=== PATIENT | male | born 1945 | race Caucasian/White ===

== ENCOUNTER 2016-09-15 10:57 | Emergency (ER) | payer BC ==
[2016-09-15 11:14] VITALS: BP 124/56; PULSE 68; TEMP 97.9; BMI 31.4
--- NOTE | 2016-09-15 11:31 | PDOC ---
Suture Removal/Wound Check HPI - History of Present Illness Chief Complaint: Suture/Staple Removal(Here) Stated Complaint: eben Time Seen by Provider: 09/15/16 11:05 History Source: Yes: Patient Exam Limitations: Yes: No Limitations Treated at: [facility] ED - Previous ED Treatment Type of procedure performed on last visit: Yes: Laceration Repair Tetanus Immunization: Yes: Up to Date Past History - Travel Traveled outside of the country in the last 30 days: No Close contact w/someone who was outside of country & ill: No - Past Medical History Allergies/Adverse Reactions: Allergies No Known Allergies Allergy (Verified 09/15/16 11:03) Home Medications: Ambulatory Orders Acetaminophen W/ Codeine #3 [Tylenol # 3] 2 combo PO Q6H #20 tablet 07/02/15 Acetaminophen W/ Codeine Liq [Tylenol .W/Codeine Oral Solution -] 5 ml PO Q6H PRN #120 ml 07/02/15 Aspirin [ASA -] 81 mg PO DAILY 07/02/15 Cholecalciferol (Vitamin D3) [Vitamin D] 2,000 unit PO 07/02/15 Vit B12/Pyridoxine/Thiamine [Pv Neuro Evelyn Tablet] 1 07/02/15 General: Yes: no pertinent history - Social History Smoking Status: Never smoked Suture Removal/Wound Check PE - Physical Exam Laceration/Wound Check Symptoms: reports: None Current Severity Level: None Maximum Severity Level: None Pain Localization: None *Review of Systems - Review of Systems Able to Perform ROS?: Yes Constitutional: Yes: Symptoms Reported, Malaise. No: See HPI *DC/Admit/Observation/Transfer Diagnosis at time of Disposition: Encounter for removal of eben - Discharge Dispostion Disposition: HOME Condition at time of disposition: Stable Admit: No
== END 2016-09-15 11:45 | disposition home or self-care (01) ==
LOC: JERFT 10:57
DX: Z48.02 Encounter for removal of sutures (principal)
CPT/HCPCS: 99281-25

== ENCOUNTER 2016-12-07 05:18 | Day surgery (SDC) | payer BC ==
[2016-12-06 12:43] VITALS: BMI 31.6
[~2016-12-07 05:18] MED LIST: BUPIVACAINE HCL/PF 0.25% (2.5MG/ML) 10 ML VIAL IJ ONE; LIDOCAINE HCL 1% PRESERVATIVE FREE - 30ML VIAL IJ ONE; methylPREDNISolone ACET (DEPO) 80 MG/1 ML VIAL IJ ONE
[2016-12-07 06:46] VITALS: TEMP 98.1
[2016-12-07] MEDS ORDERED: methylPREDNISolone ACET (DEPO) 80 MG/1 ML VIAL ONE ×2 (07:25→07:57)
[2016-12-07] MEDS ORDERED: BUPIVACAINE HCL/PF 0.25% (2.5MG/ML) 10 ML VIAL ONE (07:25)
[2016-12-07] MEDS ORDERED: PROPOFOL 20 ML ONE ×2 (07:40)
[2016-12-07] MEDS ORDERED: LIDOCAINE HCL/PF 2% SDV 5ML VIAL ONE (07:41)
[2016-12-07] MEDS ORDERED: LIDOCAINE HCL 1% PRESERVATIVE FREE - 30ML VIAL IJ ONE (08:02)
[2016-12-07] MEDS ORDERED: BUPIVACAINE HCL/PF 0.25% (2.5MG/ML) 10 ML VIAL IJ ONE (08:02)
[2016-12-07] MEDS ORDERED: methylPREDNISolone ACET (DEPO) 80 MG/1 ML VIAL IJ ONE (08:02)
[2016-12-07 09:18] VITALS: BP 106/60; PULSE 52
--- NOTE | 2016-12-07 15:49 | OP ---
DATE OF OPERATION: 12/07/2016 PREOPERATIVE DIAGNOSES: Lumbar spinal stenosis. Lower back pain. Right greater than left lower extremity radiculopathy. POSTOPERATIVE DIAGNOSES: Lumbar spinal stenosis. Lower back pain. Right greater than left lower extremity radiculopathy. ATTENDING SURGEON: Tyree Ovalles MD PROCEDURES: 1. Right L3-L4 epidural steroid injection. 2. Intraoperative fluoroscopy. ANESTHESIA: Local with IV sedation. ANESTHESIOLOGIST: Amy Adler MD INDICATIONS: The patient is a 71-year-old male with back pain and lumbar radiculopathy. Because of his intractable symptoms and failure of conservative treatment, he is here for the first lumbar epidural steroid injection. The risks of the procedure include, but are not limited to, bleeding, infection, spinal headache, and neurological injury. The patient understands the indication for the procedure, procedure in detail, risks and benefits, and alternatives for treatment of his lumbar condition, and wishes to proceed. No guarantees given for a favorable outcome. PROCEDURE IN DETAIL: After the patient was taken to the operating room, he was placed in the prone position with a pillow under his hips. The lumbar region was cleaned with alcohol and prepared with Betadine. OR timeout procedure was followed. A 22-gauge spinal needle was inserted under AP and fluoroscopic guidance toward the epidural space from right-sided approach to L3-4. A [id number] exposure was encountered and the spinal canal was accessed near the center and slightly to the right. There was no CSF or blood backflow. Depo-Medrol of 80 mg and 1 mL of 0.25% Marcaine were injected. The patient tolerated the procedure well, was returned back to the supine position, moving bilateral lower extremities well. He did not complain of a headache. TYREE OVALLES M.D. [id number]
== END 2016-12-07 09:18 | disposition home or self-care (01) ==
LOC: JASU-SURG 05:18
PROVIDERS: ATTEND Neurological Surgery
PROC: 3E0S3BZ Introduction of Anesthetic Agent into Epidural Space, Percutaneous Approach (ICD-10-PCS; 2016-12-07)
PROC: 3E0S33Z Introduction of Anti-inflammatory into Epidural Space, Percutaneous Approach (ICD-10-PCS; principal; 2016-12-07 07:30)
DX: M48.06 Spinal stenosis, lumbar region (principal); M54.16 Radiculopathy, lumbar region
CPT/HCPCS: 76000-TC

== ENCOUNTER 2018-01-03 07:34 | Day surgery (SDC) | payer BC ==
[2018-01-02 13:11] VITALS: BMI 28.1
[2018-01-03 08:08] VITALS: TEMP 98
[2018-01-03] MEDS ORDERED: BUPIVACAINE HCL/PF 0.25% (2.5MG/ML) 10 ML VIAL ONE (08:59)
[2018-01-03] MEDS ORDERED: methylPREDNISolone ACET (DEPO) 80 MG/1 ML VIAL ONE (08:59)
[2018-01-03] MEDS ORDERED: PROPOFOL 20 ML ONE ×2 (09:19)
[2018-01-03] MEDS ORDERED: methylPREDNISolone ACET (DEPO) 80 MG/1 ML VIAL IM ONE (09:25)
[2018-01-03] MEDS ORDERED: LIDOCAINE HCL 1%, 10 MG/ML (50 mL VIAL) IJ ONE (09:25)
[2018-01-03] MEDS ORDERED: BUPIVACAINE HCL/PF 0.25% (2.5MG/ML) 10 ML VIAL IJ ONE (09:25)
[2018-01-03] MEDS ORDERED: oxyCODONE HCL 5 MG TABLET PO PRN (09:35)
[2018-01-03] MEDS ORDERED: PROMETHAZINE HCL 25 MG/1 ML VIAL IVPUSH PRN (09:35)
[2018-01-03] MEDS ORDERED: ONDANSETRON 4 MG/2 ML VIAL IVPUSH PRN (09:35)
[2018-01-03] MEDS ORDERED: LACTATED RINGERS SOLUTION 1,000 ML IV SCH (09:45)
--- NOTE | 2018-01-03 10:28 | OP ---
DATE OF OPERATION: 01/03/2018 PREOPERATIVE DIAGNOSIS: Lumbar disk disease with lower back pain, lumbar radiculopathy. POSTOPERATIVE DIAGNOSIS: Lumbar disk disease with lower back pain, lumbar radiculopathy. ATTENDING SURGEON: Tyree Ovalles MD PROCEDURE: 1. Right L4-5 epidural steroid injection 2. Intraoperative fluoroscopy. ANESTHESIA: Local with IV sedation. ANESTHESIOLOGIST: Liza Elam MD INDICATION: The patient is a 72-year-old male with back pain, lumbar radiculopathy. Because of intractable symptoms and failure of conservative treatment, he is here for his first epidural steroid injection. He was found on MRI to have new disk herniation at L3-4 as well as the prior disk disease at L4-5. Risks of the procedure including but not limited to bleeding, infection, spinal headache, neurologic injury. The patient understands the indication for the procedure, the procedure in detail, risks, and benefits, and alternatives treatments for his lumbar condition and wished to proceed. No guarantee was given for a favorable outcome. PROCEDURE IN DETAIL: After patient was taken to the operating room, he was placed in prone position with a pillow under his hips. Lumbar area was cleaned with alcohol and prepped with Betadine. Skin wheal was raised with 5 mL of 1% Xylocaine. A 22-gauge spinal needle was inserted under AP and lateral fluoroscopic guidance from right-sided approach to L4-5. Loss of resistance technique was utilized. There was no CSF or blood backflow. Next, 80 mg of Depo-Medrol and 1 mL 0.25% Marcaine was injected. The needle was withdrawn and sterile bandage was applied. The patient tolerated the procedure well, was turned back to supine position, moving bilateral lower extremities well. He did not complain of a holding area. TYREE OVALLES M.D. [id number]
[2018-01-03 11:05] VITALS: BP 120/75; PULSE 54
== END 2018-01-03 10:35 | disposition home or self-care (01) ==
LOC: JASU-SURG 07:34
PROVIDERS: ATTEND Neurological Surgery
PROC: 3E0R33Z Introduction of Anti-inflammatory into Spinal Canal, Percutaneous Approach (ICD-10-PCS; 2018-01-03)
PROC: B01BYZZ Fluoroscopy of Spinal Cord using Other Contrast (ICD-10-PCS; 2018-01-03)
PROC: 3E0R3BZ Introduction of Anesthetic Agent into Spinal Canal, Percutaneous Approach (ICD-10-PCS; principal; 2018-01-03 09:00)
DX: M51.16 Intervertebral disc disorders with radiculopathy, lumbar region (principal); M48.061 Spinal stenosis, lumbar region without neurogenic claudication; Z98.890 Other specified postprocedural states
CPT/HCPCS: 76000-TC-FY

== ENCOUNTER 2018-02-01 07:00 | Day surgery (SDC) | payer BC, OTHER ==
[2018-01-31 10:02] VITALS: BMI 28.1
[2018-02-01 07:24] VITALS: TEMP 97.9
[2018-02-01] MEDS ORDERED: methylPREDNISolone ACET (DEPO) 80 MG/1 ML VIAL ONE (07:47)
[2018-02-01] MEDS ORDERED: BUPIVACAINE HCL/PF 0.25% (2.5MG/ML) 10 ML VIAL ONE (07:48)
[2018-02-01] MEDS ORDERED: LIDOCAINE HCL 1%, 10 MG/ML (20ML VIAL) ONE (07:49)
[2018-02-01] MEDS ORDERED: ONDANSETRON 4 MG/2 ML VIAL IVPUSH PRN (07:52)
[2018-02-01] MEDS ORDERED: PROPOFOL 20 ML ONE (08:14)
[2018-02-01] MEDS ORDERED: MIDAZOLAM HCL 2 MG/2 ML SINGLE DOSE VIAL ONE (08:14)
[2018-02-01] MEDS ORDERED: LIDOCAINE HCL/PF 2% SDV 5ML VIAL ONE (08:14)
[2018-02-01] MEDS ORDERED: KETOROLAC TROMETHAMINE 30 MG/1 ML VIAL ONE (08:52)
[2018-02-01] MEDS ORDERED: methylPREDNISolone ACET (DEPO) 80 MG/1 ML VIAL IJ ONE (09:01)
[2018-02-01] MEDS ORDERED: LIDOCAINE HCL 1% PRESERVATIVE FREE - 30ML VIAL IJ ONE (09:01)
[2018-02-01] MEDS ORDERED: BUPIVACAINE HCL/PF 0.25% (2.5MG/ML) 10 ML VIAL IJ ONE (09:01)
--- NOTE | 2018-02-01 10:20 | OP ---
DATE OF OPERATION: 02/01/2018 PREOPERATIVE DIAGNOSES: Lumbar spinal stenosis with intractable lower back pain and right greater than left L4-L5 radiculopathy. POSTOPERATIVE DIAGNOSES: Lumbar spinal stenosis with intractable lower back pain and right greater than left L4-L5 radiculopathy. ATTENDING SURGEON: Tyree Vora MD PROCEDURES: 1. Right L4-L5 epidural steroid injection. 2. Intraoperative fluoroscopy. ANESTHESIA: Local with IV sedation. ANESTHESIOLOGIST: Harjinder Wright MD INDICATION: The patient is a 72-year-old male with intractable back pain and right greater than the left sciatica. Because of intractable symptoms and failure of conservative treatment, he is here for the second epidural steroid injection. The first injection gave him a couple weeks of moderate relief. However, his pain has subsequently exacerbated. The risks of the procedure include but are not limited to bleeding, infection, spinal headache, and neurologic injury. The patient understands the indications for the procedure, procedure in detail, risks and benefits, and alternative treatments of his lumbar condition, and wishes to proceed. No guarantees were given for a favorable outcome. PROCEDURE IN DETAIL: After the patient was taken to the operating room, he was placed in a prone position with a pillow under his hips. He requested IV sedation, prior to being turned because of the excruciating pain. He has a fairly stiff shoulder and therefore his right arm was tucked on the side. Left arm was rotated forward and placed on the arm board. The posterior lumbar region was cleaned with alcohol and prepped with Betadine. A skin wheal was raised with 5 mL of 1% Xylocaine. A 22-gauge spinal needle was inserted under AP and lateral fluoroscopic guidance, after the skin was cleaned and prepped with alcohol and Betadine. The 22-gauge spinal needle was inserted under AP and lateral fluoroscopic guidance from a right-sided approach at L4-L5. Loss of resistance technique was utilized and there was no CSF or blood backflow. Depo-Medrol of 80 mg and 1 mL of 0.25% Marcaine were injected. The needle was withdrawn and a sterile bandage was applied. The patient tolerated the procedure well and was returned back to supine position, moving bilateral lower extremities well. He did not complain of headache. Jose [id number] MTDD
[2018-02-01 11:09] VITALS: BP 117/66; PULSE 52
== END 2018-02-01 11:10 | disposition home or self-care (01) ==
LOC: JASU-SURG 07:00
PROVIDERS: ATTEND Neurological Surgery
PROC: 3E0R3BZ Introduction of Anesthetic Agent into Spinal Canal, Percutaneous Approach (ICD-10-PCS; 2018-02-01)
PROC: B01BZZZ Fluoroscopy of Spinal Cord (ICD-10-PCS; 2018-02-01)
PROC: 3E0R33Z Introduction of Anti-inflammatory into Spinal Canal, Percutaneous Approach (ICD-10-PCS; principal; 2018-02-01 08:30)
DX: M48.061 Spinal stenosis, lumbar region without neurogenic claudication (principal); M54.16 Radiculopathy, lumbar region; M54.5 Low back pain
CPT/HCPCS: 76000-TC-FY

== ENCOUNTER 2018-02-05 07:26 | Emergency (ER) | payer BC, OTHER ==
[2018-02-05 07:34] VITALS: BMI 28.7
[2018-02-05] MEDS ORDERED: KETOROLAC TROMETHAMINE 60 MG/2 ML VIAL IM ONE (07:53)
[2018-02-05] MEDS ORDERED: KETOROLAC TROMETHAMINE 60 MG/2 ML VIAL ONE (07:56)
--- NOTE | 2018-02-05 08:04 | PDOC ---
History of Present Illness - General Chief Complaint: Back Pain Stated Complaint: LOWER BACK PAIN Time Seen by Provider: 02/05/18 07:43 History Source: Patient Exam Limitations: No Limitations - History of Present Illness Initial Comments: 02/05/18 07:58 Patient is a 72M with history of chronic back pain, HTN, HLD here today complaining of back pain over the past two months, worsening over the past 5 days. Patient has had two epidural steroid injections in the past month and an MRI on 12/21/17 that showed L L3 nerve root impingement and possible L4 nerve impingement, right anterior epidural density/hematoma at L3/L4 level, herniation at L4/L5 and L5/S1. Patient reports that he hasn't taken any medication for the past 5 days. He was previously prescribed oxycodone. Patient is coming in today because he can't bear the pain anymore. No fevers, chills, history of cancer, saddle anesthesia, or focal neuro deficits. Neurosurgeon: Tyree Vora PMD: Dr Karan Yoder 02/05/18 08:04 Past History - Past Medical History Allergies/Adverse Reactions: Allergies Allergy/AdvReac Type Severity Reaction Status Date / Time No Known Allergies Allergy Verified 02/05/18 07:30 Home Medications: Ambulatory Orders Atorvastatin Ca [Lipitor] 20 mg PO DAILY 12/06/16 Gabapentin [Neurontin] 300 mg PO BID 12/06/16 Losartan Potassium 25 mg PO HS 12/06/16 Metoprolol Succinate [Toprol XL -] 200 mg PO DAILY 12/06/16 Aspirin [ASA -] 325 mg PO DAILY 01/02/18 Oxycodone HCl 5 mg PO PRN PRN 01/02/18 Oxycodone HCl/Acetaminophen [Percocet 5-325 mg Tablet] 1 tab PO Q6H #12 tablet MDD 4 tabs 02/05/18 Pregabalin [Lyrica -] 50 mg PO TID #15 capsule MDD 3 02/05/18 Anemia: No Asthma: No Cancer: No Cardiac Disorders: No CVA: No COPD: No CHF: No Dementia: No Diabetes: No GI Disorders: No Disorders: No HTN: Yes Hypercholesterolemia: Yes Liver Disease: No Seizures: No Thyroid Disease: No - Surgical History Abdominal Surgery: No Appendectomy: No Cardiac Surgery: No (cardiac cath-no further treatment) Cholecystectomy: No Lung Surgery: No Neurologic Surgery: No Orthopedic Surgery: Yes (MICRODISECTOMY C5-6 2005) - Immunization History Immunization Up to Date: Yes - Suicide/Smoking/Psychosocial Hx Smoking History: Never smoked Have you smoked in the past 12 months: No Hx Alcohol Use: No Drug/Substance Use Hx: No Substance Use Type: None Hx Substance Use Treatment: No Review of Systems - Review of Systems Comments:: 02/05/18 08:02 GENERAL/CONSTITUTIONAL: No fever or chills. No weakness. HEAD, EYES, EARS, NOSE AND THROAT: No change in vision. No sore throat. CARDIOVASCULAR: No chest pain or shortness of breath RESPIRATORY: No cough, wheezing, or hemoptysis. GASTROINTESTINAL: No nausea, vomiting, diarrhea or constipation. GENITOURINARY: No dysuria, frequency, or change in urination. MUSCULOSKELETAL: Positive for back and leg pain. SKIN: No rash NEUROLOGIC: No headache, vertigo, loss of consciousness, or change in strength/ sensation. HEMATOLOGIC/LYMPHATIC: No anemia, easy bleeding, or history of blood clots. ALLERGIC/IMMUNOLOGIC: No hives or skin allergy. *Physical Exam - Vital Signs Last Vital Signs Temp Pulse Resp BP Pulse Ox 98.0 F 78 18 113/73 97 02/05/18 07:30 02/05/18 07:30 02/05/18 07:30 02/05/18 07:30 02/05/18 07:30 - Physical Exam Comments: 02/05/18 08:04 GENERAL: Awake, alert, and fully oriented, in moderate distress, ambulatory, can 't get comfortable BACK: Tender midline in lumbar spine, straight leg test negative, no signs of trauma/masses. HEAD: No signs of trauma, normocephalic, atraumatic EYES: PERRLA, EOMI, sclera anicteric, conjunctiva clear NECK: Normal ROM, supple, no lymphadenopathy, JVD, or masses LUNGS: No distress, speaks full sentences, clear to auscultation bilaterally HEART: Regular rate and rhythm, normal S1 and S2, no murmurs, rubs or gallops, peripheral pulses normal and equal bilaterally. ABDOMEN: Soft, nontender, normoactive bowel sounds. No guarding, no rebound. No masses EXTREMITIES: Normal inspection, Normal range of motion, no edema. No clubbing or cyanosis. NEUROLOGICAL: Cranial nerves II through XII grossly intact. Normal speech, normal gait, no focal sensorimotor deficits SKIN: Warm, Dry, normal turgor, no rashes or lesions noted. ED Treatment Course - LABORATORY CBC & Chemistry Diagram: 02/05/18 09:47 02/05/18 09:47 Medical Decision Making - Medical Decision Making 02/05/18 08:06 Patient is 72M with history of chronic back pain, HTN, HLD here today with back pain. Vital signs normal and stable. No red flags on exam. MRI recently done. Recently had epidural steroid injection. Will treat pain with percocet and toradol. Will call patient's neurosurgeon and pcp. 02/05/18 09:14 Dr Vora contacted, requesting basic labs and PSA done. PSA lab is sendout. Dr Vora evaluated patient, added on lyrica and x-rays. 02/05/18 10:39 Laboratory Tests 02/05/18 02/05/18 09:47 09:47 WBC 12.4 H Hgb 15.7 Plt Count 185 BUN 23 H D Creatinine 1.2 D Creat Clearance w eGFR 59.86 CBC shows small leukocytosis. CMP reassuring. PSA will not result today. Pending x-rays. Patient continues to be ambulatory. 02/05/18 10:56 X-rays show arthritis, will discharge home with pain medications. *DC/Admit/Observation/Transfer Diagnosis at time of Disposition: Back pain - Discharge Dispostion Disposition: HOME Condition at time of disposition: Good Decision to Admit order: No - Prescriptions Prescriptions: Oxycodone HCl/Acetaminophen [Percocet 5-325 mg Tablet] 1 tab PO Q6H #12 tablet MDD 4 tabs Pregabalin [Lyrica -] 50 mg PO TID #15 capsule MDD 3 - Referrals Referrals: Justin Yoder MD [Primary Care Provider] - - Patient Instructions Printed Discharge Instructions: DI for Low Back Pain Additional Instructions: Please return if you have any new, worsening or concerning symptoms. Please call to make an appointment with Dr Vora tomorrow. Please follow up with your primary care physician as well. - Post Discharge Activity
[2018-02-05] MEDS ORDERED: diazePAM 5 MG TABLET PO ONE (08:29)
--- NOTE | 2018-02-05 08:33 | PDOC ---
Attending Attestation - Resident Resident Name: JoaokathyTyree - ED Attending Attestation I have performed the following: I have examined & evaluated the patient, The case was reviewed & discussed with the resident, I agree w/resident's findings & plan, Exceptions are as noted - HPI HPI: 02/05/18 08:28 "The patient is a 72 year old male with a significant PMH of HTN, hyperlipidemia , and chronic back pain who presents to the emergency department with acute on chronic back pain over the past 5 days. The patient states he has a recent history of lumbar nerve impingements and herniations seen on MRI. The patient describes his back pain today as localized in the lower region with radiation down the legs bilaterally. The patient denies weakness or numbness. He denies difficulty ambulating. He denies incontinence or saddle anesthesia. He denies fevers or chills. Pt is seen by Dr. Vora for this. Had recent epidural steroid injection that he reports did not help. Pt has been taking gabapentin and oxycodone at home with no relief. Allergies: NKA PCP: Dr. Justin Yoder Neurosurg: Dr. Vora " - Physicial Exam PE: 02/05/18 08:31 "GENERAL: Awake, alert, and fully oriented, in no acute distress. HEAD: No signs of trauma EYES: PERRLA, EOMI, sclera anicteric, conjunctiva clear ENT: Auricles normal inspection, hearing grossly normal, nares patent, oropharynx clear without exudates. Moist mucosa NECK: Nontender, no stepoffs, Normal ROM, supple, no lymphadenopathy, JVD, or masses LUNGS: Breath sounds equal, clear to auscultation bilaterally. No wheezes, and no crackles HEART: Regular rate and rhythm, normal S1 and S2, no murmurs, rubs or gallops ABDOMEN: Soft, nontender, normoactive bowel sounds. No guarding, no rebound. No masses EXTREMITIES: Normal range of motion, no edema. No clubbing or cyanosis. No cords , erythema, or tenderness NEUROLOGICAL: Cranial nerves II through XII intact. 5/5 strength and sensation in all extremities, Normal speech, normal gait, normal cerebellar function SKIN: Warm, Dry, normal turgor, no rashes or lesions noted. " - Medical Decision Making 02/05/18 08:31 72 M with lower back pain 2/2 herniated discs. No clinical signs of cord compression or cauda equina. Pt ambulatory in ED with no assistsance. - Pain control with percocet, valium, toradol - Consult Dr. Vora 02/05/18 10:[address] Vora, who recommended L spine X rays. X rays obtained, revealing scoliosis, otherwise unremarkable. Pt reassessed - now with improved pain s/p meds. Ambulatory in ED with stable gait. Pt is well appearing, with normal vitals. Clinically stable for DC at this time. I discussed the physical exam findings, ancillary test results and final diagnoses with the patient. I answered all of the patient's questions. The patient was satisfied with the care received and felt comfortable with the discharge plan and treatment plan. The patient agrees to follow up with the primary care physician within 24-72 hours.
[2018-02-05] MEDS ORDERED: diazePAM 5 MG TABLET ONE (08:43)
[2018-02-05 10:01] LABS: HEMATOCRIT 47.4 % (35.4-49); HEMOGLOBIN 15.7 GM/dL (11.7-16.9); MCH 31.7 pg (25.7-33.7); MCHC 33.1 g/dl (32.0-35.9); MEAN CELL VOLUME 95.8 fl (80-96); MEAN PLT VOLUME 7.8 fl (7.5-11.1); PLATELET COUNT 185 K/MM3 (134-434); RBC 4.95 M/mm3 (4.00-5.60); RDW 14.5 % (11.9-15.9); WHITE BLOOD COUNT 12.4 K/mm3 (4.0-10.0)
[2018-02-05] MEDS ORDERED: PREGABALIN 50 MG CAPSULE PO ONE (10:03)
--- NOTE | 2018-02-05 10:03 | PN ---
Progress Note (short form) - Note Progress Note: NEUROSURGERY CONSULT DICTATED Pt examined Chart reviewed MRI reviewed () C/o severe LBP and sciatica Pain to B buttocks, R > L thomas-lateral thigh, rodriguez/calf, medial ankle Difficulty lying on back No B/B incontinence Only responded minimally to 2 EPSI PE: AF, VSS, at bedside in ED HEENT- NC/AT; Neck- supple; Cor - RR; Lungs- CTA; Abd- benign; Ext- no sign of DVT CN- Intact; Motor- 4+/5 pain limited B LE; Sensation- intact LT/vibration; DTR- hyporeflexia B; Back- B sciatic notch tenderness, + SLR on R at 30 degrees LS MRI- multilevel DDD; B mild foramenal disc bulge with lateral recess narrowing; broad based and central disc protrusion with B lateral recess and foramenal stenosis, R > L L5 root impingement in lateral recess (small disc fragment and facet synovial cyst) and L > R L4 root impingement in foramen L4-5 spondylolisthesis/instability- candidate for L4-5 laminectomies, partial L3 laminectomy and lateral recess decompression, L4-5 interbody fusion If adequate pain control could be achieved can be discharged for outpatient management otherwise could be admitted for inpatient management Add Lyrica 50 mg TID Lumbar flexion extension x-rays to r/o instability D/w pt, , and ED
[2018-02-05 10:27] LABS: ALBUMIN 3.3 g/dl (3.4-5.0); ALK PHOS 78 U/L (45-117); ANION GAP 6 (8-16); BILIRUBIN,TOTAL 0.6 mg/dL (0.2-1.0); BLOOD UREA NITROGEN 23 mg/dL (7-18); CALCIUM 8.5 mg/dL (8.5-10.1); CHLORIDE 108 mmol/L (98-107); CO2 25 mmol/L (21-32); CREATININE 1.2 mg/dL (0.7-1.3); GLUCOSE,RANDOM 85 mg/dL (74-106); POTASSIUM 4.4 mmol/L (3.5-5.1); SGOT/AST 19 U/L (15-37); SGPT/ALT 29 U/L (12-78); SODIUM 139 mmol/L (136-145); TOT PROT 6.7 g/dl (6.4-8.2)
[2018-02-05 11:07] VITALS: BP 107/77; PULSE 69; TEMP 97.7
--- NOTE | 2018-02-06 10:00 | CONS ---
DATE OF CONSULTATION: 02/05/2018 REQUESTING PHYSICIAN: Dr Montoya. GLASS HANDLER: Tyree Ovalles MD, Neurosurgery. CHIEF COMPLAINT: Lower back pain, bilateral sciatica. HISTORY OF PRESENT ILLNESS: The patient is a 72-year-old right-handed male with history of hypertension, hypercholesterolemia as well as chronic lower back pain who complains of increasing lower back pain over the last 2-3 months. The pain has been especially severe for the last 5 days. The pain goes from the lower back to the bilateral buttocks, posterior anterolateral thigh, right rodriguez and calf, to the right medial ankle. The pain also goes down to the left buttock and posterior thigh, down to the calf on the left side but it is not as severe. The pain is rated as 10 on a 1-10 scale. The pain is worse when lying down flat on his back as well as when he is trying to get up. He has no severe weakness, even though he has difficulty ambulating. He denies any bowel or bladder incontinence. There is no fever or chills nor any signs of history of primary systemic malignancy. MRI was done back in December demonstrating worsening L4-5 disk disease. The patient had previously undergone conservative treatment including physical therapy, anti-inflammatory medication, and a second epidural steroid injection was given last week. He has not benefited much from the injections. PAST MEDICAL HISTORY: Significant for hypertension, hypercholesterolemia. MEDICATIONS: Include Lipitor, Neurontin, losartan, metoprolol, aspirin 325 mg, and oxycodone p.r.n. ALLERGIES: There are no known drug allergies. FAMILY HISTORY: Noncontributory. SOCIAL HISTORY: He does not smoke and only drinks alcohol socially. He lives at home. He is retired. REVIEW OF SYSTEMS: Otherwise negative for other major constitutional, head and neck, cardiovascular, pulmonary, gastrointestinal, genitourinary, endocrinological, neurological, and psychological problems except for the above. PHYSICAL EXAMINATION: General: He is awake and alert. He is uncomfortable. He is sitting on the side of the stretcher. Vital Signs: Temperature is 98, blood pressure is 113/73, his pulse rate is 78 , and O2 saturation is 97% on room air. HEENT: Examination shows him to be normocephalic, atraumatic, anicteric. Neck: Supple with no lymphadenopathy, no carotid bruit. Coronary: Examination demonstrates a regular rhythm. Lungs: Clear bilaterally. Abdomen: Benign but obese. Extremities: Examination shows no signs of DVT. Distal pulses are 1-2+ and symmetric. Neurologic: He is awake, alert, and oriented x4. Cranial nerve examination is intact II-XII. Motor examination shows 4+/5 strength of bilateral lower extremities, limited by pain. Sensory examination demonstrates intact sensation to light touch and vibratory sensation. Deep tendon reflexes are hyporeflexive throughout. There is no pathologic long tract sign. Musculoskeletal: Examination of his lower back shows bilateral sciatic notch tenderness. He has a positive straight leg raise on the right at about 30 degrees. LABORATORY EXAMINATION: Pending. MRI of the lumbar spine from December 27, 2017 demonstrated multilevel degenerative disk disease from L3-4 to L5-S1. He has mild bilateral L3 foraminal disk bulge. There is mild foraminal narrowing. There is worsening broad-based disk protrusion both centrally and bilaterally at L4-5 extending through the left L4-5 neuroforamen. There is resultant thecal sac impingement. There is also a possible small disk extrusion on the right with right L5 nerve root impingement. There is left greater than right L4-5 neuroforaminal stenosis. There is moderate central stenosis. A small synovial cyst could be present on the right just below in the subarticular region. There is mild L5-S1 foraminal narrowing but there is no significant canal compromise or any nerve root impingement or thecal sac impingement. IMPRESSION: 1. Worsening L4-5 disk protrusion with lower back pain and bilateral lumbar radiculopathy, right greater than left in a predominant L4 and L5 distribution. 2. L4-5 lumbar stenosis greater than L3-4 and L5-S1. 3. Hypertension. 4. Obesity. 5. Hypercholesterolemia. RECOMMENDATIONS: The patient presents with chronic lower back pain which has worsened significantly over the last couple of months. He has bilateral sciatica, right greater than left. Even though he has no severe weakness, he has difficulty with ambulation. He also has difficulty lying down flat. Baseline blood tests should be obtained to rule out elevated LFTs including alkaline phosphatase and a PSA has been requested. If his pain persists, surgical intervention may be helpful in terms of lumbar decompression and interbody fusion at the L4-5 level. Unfortunately, he also has concurrent degenerative disease at L3-4 and L5-S1 which would make such a procedure potentially more problematic in the future. He does have mild spondylolisthesis at the L4-5 level. In the presence of a synovial cyst, there is likely some segmental instability there. I discussed the above with the patient and his at the bedside in the emergency room. Obviously, he needs to meet admission criteria to be admitted. They will also discuss his condition with his primary care physician. The above was discussed with the emergency room attending as well. TYREE OVALLES M.D. [id number] MTDD
== END 2018-02-05 11:07 | disposition home or self-care (01) ==
LOC: JER 07:26
PROC: 3E0233Z Introduction of Anti-inflammatory into Muscle, Percutaneous Approach (ICD-10-PCS; principal; 2018-02-05)
DX: M54.5 Low back pain (principal); G89.29 Other chronic pain; I10 Essential (primary) hypertension; E78.5 Hyperlipidemia, unspecified; E78.00 Pure hypercholesterolemia, unspecified; M54.41 Lumbago with sciatica, right side; M54.42 Lumbago with sciatica, left side
CPT/HCPCS: 36415; 72100-TC-FY; 80053; 84153; 85027; 96372; 99282-25

== ENCOUNTER 2018-02-26 05:13 | Inpatient (IN) | payer BC, OTHER ==
[2018-02-23 10:09] VITALS: BMI 28.1
[2018-02-26] MEDS: GABAPENTIN 300 MG CAPSULE (FP) PO SCH (00:51)
[~2018-02-26 05:13] MED LIST changes: +BACITRACIN 15 GM TUBE TOPICAL OINTMENT TP ONE; -BUPIVACAINE HCL/PF 0.25% (2.5MG/ML) 10 ML VIAL IJ ONE; -LIDOCAINE HCL 1% PRESERVATIVE FREE - 30ML VIAL IJ ONE; -methylPREDNISolone ACET (DEPO) 80 MG/1 ML VIAL IJ ONE
[2018-02-26] MEDS: ATORVASTATIN CA 20 MG TABLET (FP) PO SCH (10:00)
[2018-02-26] MEDS: CEFAZOLIN 1 GM in DEXTROSE 5%-WATER - 50 ML IVPB SCH (10:00)
[2018-02-26] MEDS: diazePAM 5 MG TABLET PO SCH (10:00)
[2018-02-26] MEDS ORDERED: fentaNYL CITRATE 250 MCG/5 ML VIAL ONE (13:27)
[2018-02-26] MEDS ORDERED: ROCURONIUM BROMIDE 50 MG/5 ML VIAL ONE ×2 (13:28→14:52)
[2018-02-26] MEDS ORDERED: ONDANSETRON 4 MG/2 ML VIAL ONE (13:28)
[2018-02-26] MEDS ORDERED: PROPOFOL 20 ML ONE ×3 (13:28)
[2018-02-26] MEDS ORDERED: DEXAMETHASONE SOD PHOSPHATE 4 MG/1 ML VIAL ONE (13:28)
[2018-02-26] MEDS ORDERED: MIDAZOLAM HCL 2 MG/2 ML SINGLE DOSE VIAL ONE (13:28)
[2018-02-26] MEDS ORDERED: BUPIVACAINE HCL/PF 0.5% (5MG/ML) 10 ML VIAL ONE (13:53)
[2018-02-26] MEDS ORDERED: BACITRACIN 15 GM TUBE TOPICAL OINTMENT ONE (13:53)
[2018-02-26] MEDS ORDERED: THROMBIN (BOVINE) 5,000 UNIT VIAL TP ONE ×2 (13:53→14:48)
--- NOTE | 2018-02-26 13:53 | HP ---
History & Physical Update - History History: No Change - Physical Physical: No Change - Assessment Assessment: No Change - Plan Plan: No Change (no changes since visit on 02/20/[address] Yoder)
[2018-02-26] MEDS ORDERED: ceFAZolin SODIUM 1 GM VIAL IVPB ONE (14:33)
[2018-02-26] MEDS ORDERED: ceFAZolin SODIUM 1 GM VIAL ONE (14:46)
[2018-02-26] MEDS ORDERED: BACITRACIN 50,000 UNITS VIAL NR ONE (14:48)
[2018-02-26] MEDS ORDERED: GELATIN SPONGE,ABSORBABLE 1 GM PACKET TP ONE (14:48)
[2018-02-26] MEDS ORDERED: BUPIVACAINE HCL/PF (5 MG/ML) 30 ML VIAL IJ ONE ×2 (15:55)
[2018-02-26] MEDS ORDERED: BACITRACIN 15 GM TUBE TOPICAL OINTMENT TP ONE ×2 (16:11→16:20)
[2018-02-26] MEDS ORDERED: ONDANSETRON 4 MG/2 ML VIAL IVPUSH PRN ×2 (16:17→16:59)
[2018-02-26] MEDS ORDERED: BISACODYL 10 MG SUPP.RECT RC PRN (16:17)
[2018-02-26] MEDS ORDERED: ACETAMINOPHEN 325 MG TABLET (FP) PO PRN (16:17)
--- NOTE | 2018-02-26 16:17 | OP ---
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
[2018-02-26] MEDS ORDERED: D5-1/2NS+20 MEQ KCL - 1,000 ML IV SCH (16:30)
[2018-02-26] MEDS ORDERED: NEOSTIGMINE METHYLSULFATE 0.5 MG/ML - 10 ML MDV ONE (16:31)
[2018-02-26] MEDS ORDERED: GLYCOPYRROLATE 0.2 MG/1 ML VIAL ONE (16:31)
--- NOTE | 2018-02-26 16:39 | PN ---
Progress Note (short form) - Note Progress Note: NEUROSURGERY In PACU Incisional pain AF, VSS PE; CV- RRR; Lugs- CTA B; Abd- benign; Ext- no sign of DVT CN- intact; Motor- B LE at least 4/5; Sensation- intact LT Dressing intact Findings and care d/w BODY CARE MANAGER for pain OOB in AM
--- NOTE | 2018-02-26 16:55 | SURG ---
Surgery Security Police Officer Note Security Police Officer: Lizabeth Caro PA-C Date of Service: 02/26/18 Diagnosis: L3-4 and L4-5 stenosis; R L4-5 extruded HNP Procedure: B partial L3 and L5 laminectomies, B L4 laminectomy, medial facetectomy, foramenotomies L3-4 and L4-5 B; harvest of autologous bone; posterolateral bone graft fusion L3-4 and L4-5; autologous bone grafts; microdissection I was present for the entirety of the operative procedure. For further detail, please refer to operative report. Visit type - Case Type Case Type: Scheduled - Emergency Emergency Visit: No - New patient This patient is new to me today: Yes Date on this admission: 02/26/18
[2018-02-26] MEDS ORDERED: HYDROmorphone *PCA* 10MG/50ML DISP.SYRIN PCA ONE (16:57)
[2018-02-26] MEDS: HYDROmorphone *PCA* 10MG/50ML DISP.SYRIN PCA SCH (17:02)
[2018-02-26] MEDS: D5-1/2NS+20 MEQ KCL - 20 MEQ/1,000 ML INFUS.BAG IV SCH (17:15)
[2018-02-26 17:44] LABS: HEMATOCRIT 38.7 % (35.4-49); HEMOGLOBIN 12.9 GM/dL (11.7-16.9); MCHC 33.4 g/dl (32.0-35.9); MEAN CELL VOLUME 95.7 fl (80-96); MEAN PLT VOLUME 7.6 fl (7.5-11.1); PLATELET COUNT 153 K/MM3 (134-434); RBC 4.04 M/mm3 (4.00-5.60); RDW 14.6 % (11.9-15.9); WHITE BLOOD COUNT 7.3 K/mm3 (4.0-10.0)
[2018-02-26 18:25] LABS: ANION GAP 7 (8-16); BLOOD UREA NITROGEN 18 mg/dL (7-18); CALCIUM 8.4 mg/dL (8.5-10.1); CHLORIDE 106 mmol/L (98-107); CO2 27 mmol/L (21-32); CREATININE 0.8 mg/dL (0.7-1.3); GLUCOSE,RANDOM 92 mg/dL (74-106); SODIUM 140 mmol/L (136-145)
--- NOTE | 2018-02-26 20:03 | OP ---
DATE OF OPERATION: 02/26/2018 PREOPERATIVE DIAGNOSIS: Intractable pain and radiculitis L3-4-5. POSTOPERATIVE DIAGNOSIS: Intractable pain and radiculitis L3-4-5. PROCEDURE: Bilateral laminectomy L3-4-5, excision of the synovial cyst, and bone graft/fusion of L4-5. SURGICAL ATTENDING: Tyree Vora M.D. CO-SURGEON: Jackson Dominguez M.D. ANESTHESIA: General endotracheal intubation. POSITION: Prone. CLOSURE: 0 Vicryl fascia, 3-0 Vicryl subcutaneous, and 4-0 Vicryl subcuticular for skin. ESTIMATED BLOOD LOSS: Less than 100 mL. COMPLICATIONS: None. CONDITION: To recovery room in stable condition. DESCRIPTION OF PROCEDURE: Patient taken to operating room on February 26, 2018. General anesthesia via endotracheal intubation was administered by the anesthesiologist. IV Kefzol administered prophylactically prior to the case. The patient was placed in the prone position with all prominences well padded. The lumbar region was prepped and draped in the usual sterile fashion. A spinal needle was used with x-ray guidance to isolate the appropriate level. A midline incision from L3 down to L5 was incised, hemostasis achieved. Bovie cautery and sharp dissection was carried down to the spinous processes. Subperiosteal dissection was done along the spinous process down to the level of the lamina both on the right and left side. Retractors were placed, hemostasis was achieved. At this time, Dr. Terry Vora, neurosurgeon, took over to perform the appropriate laminectomies, fusion, and spinal procedure. After Dr. Vora had completed his procedure, the incision was closed in layers with 0 Vicryl for fascia, 3-0 Vicryl for subcutaneous, and 4-0 Vicryl for skin with Steri-Strips and a pressure dressing. Please see Dr. Vora's dictation for the complete dictation of the spinal procedure. JACKSON DOMINGUEZ M.D. [id number]
[2018-02-26] MEDS: DOCUSATE SODIUM 100 MG CAPSULE (FP) PO SCH (22:00)
[2018-02-27] MEDS ORDERED: DEXTROSE 5%-WATER - 50 ML IVPB ONE ×3 (00:47→20:43)
[2018-02-27] MEDS ORDERED: ceFAZolin SODIUM 1 GM VIAL ONE ×3 (00:47→20:43)
[2018-02-27] MEDS ORDERED: PT OWN MED DRAWER 7, Y5N ONE (06:10)
[2018-02-27] MEDS: diazePAM 5 MG TABLET PO SCH ×3 (06:15→21:12)
[2018-02-27] MEDS: DOCUSATE SODIUM 100 MG CAPSULE (FP) PO SCH ×3 (06:15→21:12)
[2018-02-27] MEDS: GABAPENTIN 300 MG CAPSULE (FP) PO SCH ×3 (06:15→21:14)
[2018-02-27] MEDS: CEFAZOLIN 1 GM in DEXTROSE 5%-WATER - 50 ML IVPB SCH ×3 (06:47→23:15)
--- NOTE | 2018-02-27 07:29 | PN ---
Progress Note (short form) - Note Progress Note: NEUROSURGERY On 8W Incisional pain No sciatica Tmax 98.6, AF, VSS PE: CV- RRR; Lugs- CTA B; Abd- benign; Ext- no sign of DVT CN- intact; Motor- B LE at least 4/5; Sensation- intact LT Dressing intact/clean/dry- changed WBC 7.3, Hgb 12.9 Findings and care d/w pt Cont SAP BASIS ADMINISTRATOR for pain OOB with PT Incentive spirometry
--- NOTE | 2018-02-27 07:33 | OP ---
DATE OF OPERATION: 02/26/2018 PREOPERATIVE DIAGNOSES: 1. L3-4 and L4-5 stenosis. 2. Right L4-5 extruded disk herniation, mild segmental instability, L4-5 greater than L3-4. POSTOPERATIVE DIAGNOSES: 1. L3-4 and L4-5 stenosis. 2. Right L4-5 extruded disk herniation, mild segmental instability, L4-5 greater than L3-4. ATTENDING SURGEON: Tyree Vora MD CO-SURGEON: Jackson Dominguez MD SUPERINTENDENT QUARRY: EARLENE Francis ANESTHESIA: General endotracheal. ANESTHESIOLOGIST: Dr. Rosario. ESTIMATED BLOOD LOSS: 100 mL PROCEDURE: 1. Bilateral complete L4 and partial bilateral L3 and L5 laminectomy for decompression of thecal sac and lateral recess/nerve roots. ([id number], [id number], [id number] ) 2. Lena of autologous bone grafts (76908) 3. Posterolateral fusion, L3-4 and L4-5 with autologous morselized bone graft (80777, 67978). 4. Microsurgical dissection with the operating microscope and microsurgical techniques ([id number]). FINDINGS: 1. [id number] thecal sac and proximal root impingement, L3-4 and L4-5. 2. Right L4-5 extruded disk herniation with marked thecal sac impingement. INDICATIONS: The patient is a 72-year-old male with intractable lower back pain and lumbar radiculopathy. Because of his intractable symptoms and failure of conservative treatment including epidural steroid injections, he is now consented for a lumbar decompression and posterolateral bone graft placement. The risks of surgery include, but are not limited to, bleeding, infection, dural tear with CSF leak, neurological injury including thromboembolic risks and other risks of general anesthesia. The patient understands the indications for the procedure, procedure in detail, risks and benefits, and alternatives for treatment of his lumbar condition and wished to proceed. No guarantees were given for a favorable outcome. PROCEDURE IN DETAIL: After the patient was taken to the operating room, he was placed in supine position. After general anesthesia was induced and appropriate monitoring lines were placed, he was turned over in the prone position on a Joshua frame. All pressure points were checked and padded. Lumbar region was cleaned with alcohol and prepped with Betadine. A spinal needle was inserted and localization was obtained. At this point, exposure was obtained from L3 to L5 per Dr Dominguez's dictation. After localization x-ray was obtained with a clamp at the L3-4 then to the L4-5 level, supraspinal/interspinal ligament at L3-4 and L4-5 were resected. The spinous process at L3, L4 and partially at L5 were removed and morselized for bone graft purposes. The plan was for bilateral L4 complete as well as partial L3 and L5 laminectomies bilaterally. This was accomplished with a combination of high-speed pneumatic drill, angled curette, and Kerrison rongeur. Medial facetectomy was carried out L3-4 and L4-5 to gain access to the lateral recess. Lateral foraminotomy was carried out at the L3-4 and L4-5. The lateral recess was thoroughly decompressed with the use of the operating microscope for both illumination and magnification. Microsurgical techniques were utilized. After decompression was completed, the right-sided L4 -5 disk space was checked, and there was a large disk fragment sitting over the thecal sac and the proximal right L5 nerve roots. Under microsurgical dissection, the dura was dissected away from the disk herniation. A number-15 blade was used to incise the disk, and a blunt nerve hook was used to mobilize the disk material. The dental tool was similarly used. The disk material was removed and sent for pathological analysis. This was done on the right side at L4-5. At this point, epidural hemostasis was obtained with bipolar electrocautery and thrombin-soaked powdered Gelfoam. The posterolateral surface of the spine including the proximal transverse processes was decorticated from L3 to L5. It was then packed with autologous morselized bone graft bilaterally. A Valsalva maneuver was performed, and there was no CSF leak. The wound was copiously irrigated with antibiotic-containing irrigation. Then, 10 mL of 0.25% Marcaine were injected into the paraspinal muscles. At this point, the closure is dictated by Dr. Dominguez. All needle and lap counts were correct. The patient tolerated the procedure well and was extubated in the operating room after being turned back to the supine position. All needle and lap counts were correct. OR timeout procedure was followed. The patient received 1 dose of 2 g Ancef prior to incision. The patient's was updated as to the patient's postoperative condition as well as the intraoperative findings. TYREE VORA M.D. [id number] cc: Jackson Dominguez MD MTDD
[2018-02-27] MEDS: LACTATED RINGERS SOLUTION 1,000 ML IV SCH ×2 (10:27→21:14)
--- NOTE | 2018-02-27 11:45 | PN ---
Progress Note (short form) - Note Progress Note: Anesthesia postop note and pain management follow up 72 y/o M s/p GA for PLIF, bridge operator for pain management POD#1, vss, aaox3, pain well controlled, no complaints. No anesthesia complications. Will continue bridge operator today.
[2018-02-27] MEDS: LOSARTAN POTASSIUM 25 MG TABLET PO SCH (11:54)
[2018-02-27] MEDS: D5-1/2NS+20 MEQ KCL - 20 MEQ/1,000 ML INFUS.BAG IV SCH (18:14)
[2018-02-27] MEDS: HYDROmorphone *PCA* 10MG/50ML DISP.SYRIN PCA SCH (18:14)
[2018-02-27] MEDS: ATORVASTATIN CA 20 MG TABLET (FP) PO SCH (21:13)
[2018-02-28] MEDS: HYDROmorphone *PCA* 10MG/50ML DISP.SYRIN PCA SCH ×2 (02:09→17:46)
[2018-02-28] MEDS ORDERED: DEXTROSE 5%-WATER - 50 ML IVPB ONE ×3 (06:32→22:09)
[2018-02-28] MEDS ORDERED: ceFAZolin SODIUM 1 GM VIAL ONE ×3 (06:32→22:08)
[2018-02-28] MEDS: CEFAZOLIN 1 GM in DEXTROSE 5%-WATER - 50 ML IVPB SCH ×3 (06:43→22:12)
[2018-02-28] MEDS: diazePAM 5 MG TABLET PO SCH ×3 (06:43→22:11)
[2018-02-28] MEDS: DOCUSATE SODIUM 100 MG CAPSULE (FP) PO SCH ×3 (06:43→22:11)
[2018-02-28] MEDS: GABAPENTIN 300 MG CAPSULE (FP) PO SCH ×3 (06:44→22:11)
--- NOTE | 2018-02-28 08:03 | PN ---
Progress Note (short form) - Note Progress Note: NEUROSURGERY On 8W Incisional pain No sciatica, much better than pre-op Tmax 100.6, now 98.5, VSS PE: CV- RRR; Lugs- CTA B; Abd- benign; Ext- no sign of DVT CN- intact; Motor- B LE at least 4/5; Sensation- intact LT Dressing intact/clean/dry- changed Findings and care d/w pt Cont DIE MAKER for pain OOB with PT Incentive spirometry Regular diet Bowel regimen, add MOM
[2018-02-28] MEDS ORDERED: MAGNESIUM HYDROX 2400MG/30ML ORAL SUSPENSION 30 ML CUP PO ONE (08:30)
--- NOTE | 2018-02-28 09:37 | PN ---
Progress Note, Physician Chief Complaint: day #2 s/lp lumbar laminectomy - Current Medication List Current Medications: Active Medications Acetaminophen (Tylenol -) 650 mg PO Q6H PRN PRN Reason: FEVER Last Admin: 02/27/18 12:25 Dose: 650 mg Atorvastatin Calcium (Lipitor -) 20 mg PO HS [facility] Last Admin: 02/27/18 21:13 Dose: 20 mg Bisacodyl (Dulcolax Suppository -) 10 mg RC DAILY PRN PRN Reason: CONSTIPATION Diazepam (Valium -) 5 mg PO TID [facility] Last Admin: 02/28/18 06:43 Dose: 5 mg Docusate Sodium (Colace -) 100 mg PO TID [facility] Last Admin: 02/28/18 06:43 Dose: 100 mg Gabapentin (Neurontin -) 300 mg PO TID [facility] Last Admin: 02/28/18 06:44 Dose: 300 mg Hydromorphone HCl (Dilaudid Respiratory Therapy Instructor -) 10 mg SPECIAL SHOPPER SPECIAL SHOPPER [facility]; Protocol Stop: 03/01/18 17:14 Last Admin: 02/28/18 02:09 Dose: 10 mg Potassium Chloride/Dextrose/Sod Cl (D5-1/2ns+20 Meq Kcl -) 20 meq in 1,000 mls @ 100 mls/hr IV ASDIR ALEJANDRO Last Admin: 02/27/18 18:14 Dose: Not Given Lactated Ringer's (Lactated Ringers Solution) 1,000 mls @ 75 mls/hr IV ASDIR ALEJANDRO Last Admin: 02/27/18 21:14 Dose: Not Given Cefazolin Sodium 1 gm/ (Dextrose) 50 mls @ 100 mls/hr IVPB Q8H [facility] Last Admin: 02/28/18 06:43 Dose: 100 mls/hr Losartan Potassium (Cozaar -) 25 mg PO DAILY [facility] Last Admin: 02/27/18 11:54 Dose: 25 mg Metoprolol Succinate (Toprol Xl -) 200 mg PO DAILY [facility] Last Admin: 02/27/18 11:54 Dose: 200 mg Ondansetron HCl (Zofran Injection) 4 mg IVPUSH Q6H PRN PRN Reason: NAUSEA AND/OR VOMITING - Objective Vital Signs: Vital Signs Temperature 98.8 F 02/28/18 08:49 Pulse Rate 81 02/28/18 08:49 Respiratory Rate 18 02/28/18 08:49 Blood Pressure 119/61 02/28/18 08:49 O2 Sat by Pulse Oximetry (%) 96 02/27/18 21:00 Labs: CBC, BMP 02/26/18 17:00 02/26/18 17:00 Assessment/Plan Pain improved today, continue SPECIAL SHOPPER
--- NOTE | 2018-02-28 10:02 | PN ---
Progress Note (short form) - Note Progress Note: MARKEDLY IMPROVED SINCE OR MUCH LESS PAIN AND FEELING MUCH MORE COMFORTABLE BANDAGES DRY AND INTACT AVSS IMP: DOING WELL PLAN: PER DR OVALLES
[2018-02-28] MEDS: LOSARTAN POTASSIUM 25 MG TABLET PO SCH (10:25)
--- NOTE | 2018-02-28 16:43 | PATH ---
Surgical Pathology Report Patient Name: LIANNE WEI Med. Rec. #: [id number] /Age/Gender: 1945 (Age: 72) / M Account: [id number] Location: [facility] MED/SURG Taken: 02/26/2018 Received: 02/27/2018 Reported: 02/28/2018 Physicians: Jose Ma M.D. Specimen(s) Received L4-5 DISC RIGHT SIDE Clinical History Lumbar spinal stenosis Final Diagnosis L4-L5 DISC, DISCECTOMY: INTERVERBRAL DISC TISSUE. Electronically Signed Kaila Suero M.D. Gross Description Received in formalin labeled "L4-5 disc," is a 1.0 cm in greatest dimension butler fragment of fibrocartilaginous tissue. The specimen is submitted in toto in one cassette. 02/27/201802/27/2018
[2018-02-28] MEDS: D5-1/2NS+20 MEQ KCL - 20 MEQ/1,000 ML INFUS.BAG IV SCH (17:46)
[2018-02-28] MEDS: LACTATED RINGERS SOLUTION 1,000 ML IV SCH (17:59)
[2018-02-28] MEDS: ATORVASTATIN CA 20 MG TABLET (FP) PO SCH (22:11)
[2018-03-01] MEDS: GABAPENTIN 300 MG CAPSULE (FP) PO SCH ×2 (05:49→14:50)
[2018-03-01] MEDS: diazePAM 5 MG TABLET PO SCH ×3 (05:49→16:08)
[2018-03-01] MEDS: CEFAZOLIN 1 GM in DEXTROSE 5%-WATER - 50 ML IVPB SCH ×2 (05:49→14:50)
[2018-03-01] MEDS: DOCUSATE SODIUM 100 MG CAPSULE (FP) PO SCH ×2 (05:49→14:46)
[2018-03-01 07:45] LABS: BASO % 0.4 % (0-2.0); EOS % 2.8 % (0-4.5); HEMATOCRIT 35.6 % (35.4-49); HEMOGLOBIN 12.1 GM/dL (11.7-16.9); MCH 32.5 pg (25.7-33.7); MEAN CELL VOLUME 95.7 fl (80-96); MEAN PLT VOLUME 7.5 fl (7.5-11.1); MONO % 9.3 % (3.8-10.2); NEUT % 68.5 % (42.8-82.8); PLATELET COUNT 139 K/MM3 (134-434); RBC 3.72 M/mm3 (4.00-5.60); RDW 14.2 % (11.9-15.9); WHITE BLOOD COUNT 9.4 K/mm3 (4.0-10.0)
--- NOTE | 2018-03-01 07:54 | PN ---
Progress Note (short form) - Note Progress Note: NEUROSURGERY On 8W Incisional pain No sciatica Tmax 98.9, AF, VSS PE: CV- RRR; Lugs- CTA B; Abd- benign; Ext- no sign of DVT CN- intact; Motor- B LE at least 4/5; Sensation- intact LT Dressing intact/clean/dry- changed Findings and care d/w pt D/c DANCE ENTERTAINER Oxycodone for pain OOB with PT Incentive spirometry Regular diet Bowel regimen, add mag citrate VNS for home
[2018-03-01] MEDS ORDERED: oxyCODONE HCL 5 MG TABLET PO PRN (07:55)
[2018-03-01] MEDS ORDERED: MAGNESIUM CITRATE 300 ML BOTTLE PO ONE (07:56)
[2018-03-01] MEDS: LOSARTAN POTASSIUM 25 MG TABLET PO SCH (09:47)
--- NOTE | 2018-03-01 10:07 | PN ---
Progress Note (short form) - Note Progress Note: Pain Follow up POD#3 Medical Equipment Technician is Discontinued and Oxycodone is written by the surgeon. NA Adler MD.
[2018-03-01] MEDS ORDERED: DEXTROSE 5%-WATER - 50 ML IVPB ONE (14:48)
[2018-03-01] MEDS ORDERED: ceFAZolin SODIUM 1 GM VIAL ONE (14:48)
[2018-03-01 16:24] VITALS: BP 110/68; PULSE 78; TEMP 98.7
== END 2018-03-01 18:45 | disposition home health service (06) | DRG 460 ==
LOC: JSAMEDAYSX 05:13 → EDSTATUS 13:30 → J6S 19:18 → J8W 19:35
PROVIDERS: ADMIT Orthopaedic Surgery; ATTEND Orthopaedic Surgery
PROC: 0SG1071 Fusion of 2 or more Lumbar Vertebral Joints with Autologous Tissue Substitute, Posterior Approach, Posterior Column, Open Approach (ICD-10-PCS; principal; 2018-02-26 13:30)
DX: M48.061 Spinal stenosis, lumbar region without neurogenic claudication (principal); M54.16 Radiculopathy, lumbar region; M71.38 Other bursal cyst, other site; M51.26 Other intervertebral disc displacement, lumbar region
CPT/HCPCS: 36415; 72020-TC-FY; 80048; 85025; 85027; 86850; 86900; 86901; 88304-TC; 94010; 94760; 97116-GP; 97161-GP

== ENCOUNTER 2018-07-16 06:57 | Day surgery (SDC) | payer BC ==
[2018-07-13 11:41] VITALS: BMI 29.0
[2018-07-16 07:16] VITALS: TEMP 97.6
[2018-07-16] MEDS ORDERED: SUCCINYLCHOLINE CHLORIDE 200 MG/10 ML VIAL ONE (07:33)
[2018-07-16] MEDS ORDERED: PROPOFOL 20 ML ONE ×2 (07:33)
[2018-07-16] MEDS ORDERED: MIDAZOLAM HCL 2 MG/2 ML SINGLE DOSE VIAL ONE (07:35)
[2018-07-16] MEDS ORDERED: BUPIVACAINE HCL/PF 0.25% (2.5MG/ML) 10 ML VIAL IJ ONE (08:20)
[2018-07-16] MEDS ORDERED: LIDOCAINE HCL 1% PRESERVATIVE FREE - 30ML VIAL IJ ONE (08:20)
[2018-07-16] MEDS ORDERED: methylPREDNISolone ACET (DEPO) 80 MG/1 ML VIAL IJ ONE (08:20)
[2018-07-16 09:34] VITALS: BP 108/65; PULSE 54
--- NOTE | 2018-07-16 12:53 | OP ---
DATE OF OPERATION: 07/16/2018 PREOPERATIVE DIAGNOSIS: Left L2-3 herniated disk with left L3 radiculopathy. POSTOPERATIVE DIAGNOSIS: Left L2-3 herniated disk with left L3 radiculopathy. ATTENDING SURGEON: Tyree Ovalles MD PROCEDURE: 1. Left L2-3 epidural steroid injection. 2. Intraoperative fluoroscopy. ANESTHESIA: Local with IV sedation. ANESTHESIOLOGIST: Warner Alvarado MD INDICATION: Patient is a 72-year-old male with back pain and lumbar radiculopathy. Because of his intractable symptoms and failure of conservative treatment, he is here for first left L2-3 injection. Risks of procedure include but were limited to, bleeding, infection, spinal headache, and neurological injury. The patient understands indications for the procedure, procedure in detail, risks and benefits and alternatives for treatment of his lumbar condition and wishes to proceed. No guarantees were given for a favorable outcome. PROCEDURE IN DETAIL: After the patient was taken to the operating room, he was placed in the prone position with a pillow on his hips. Lumbar region was cleaned with alcohol and prepped with Betadine. Skin wheal was raised with 5 mL of 1% xylocaine. A 22-gauge spinal needle was inserted under AP and lateral fluoroscopic guidance from left-sided approach to L2-3. Loss of resistance technique was utilized, and there was no E COMMERCE DIRECTOR or blood backflow. Depo-Medrol 80 mg and 1 mL of 0.25% Marcaine were injected. The needle was withdrawn. Sterile bandage was applied. The patient tolerated the procedure well, was returned to the spine position, moving bilateral extremities well, and he did not complain of headache. TYREE OVALLES M.D. [id number]
== END 2018-07-16 09:46 | disposition home or self-care (01) ==
LOC: JASU-SURG 06:57
PROVIDERS: ATTEND Neurological Surgery
PROC: 3E0R33Z Introduction of Anti-inflammatory into Spinal Canal, Percutaneous Approach (ICD-10-PCS; 2018-07-16)
PROC: 3E0R3BZ Introduction of Anesthetic Agent into Spinal Canal, Percutaneous Approach (ICD-10-PCS; principal; 2018-07-16 08:00)
DX: M51.16 Intervertebral disc disorders with radiculopathy, lumbar region (principal)
CPT/HCPCS: 76000-TC-FY

== ENCOUNTER 2018-08-08 06:21 | Day surgery (SDC) | payer BC ==
[2018-08-07 08:45] VITALS: BMI 29.0
[2018-08-08] MEDS ORDERED: methylPREDNISolone ACET (DEPO) 80 MG/1 ML VIAL ONE (07:04)
[2018-08-08] MEDS ORDERED: BUPIVACAINE HCL/PF 0.25% (2.5MG/ML) 10 ML VIAL ONE (07:05)
[2018-08-08] MEDS ORDERED: PROPOFOL 20 ML ONE (07:24)
[2018-08-08] MEDS ORDERED: MIDAZOLAM HCL 2 MG/2 ML SINGLE DOSE VIAL ONE (07:25)
[2018-08-08] MEDS ORDERED: LIDOCAINE HCL/PF 2% SDV 5ML VIAL ONE (08:04)
[2018-08-08] MEDS ORDERED: LIDOCAINE HCL 1%, 10 MG/ML (50 mL VIAL) IJ ONE (08:08)
[2018-08-08] MEDS ORDERED: BUPIVACAINE HCL/PF 0.25% (2.5MG/ML) 10 ML VIAL IJ ONE (08:12)
[2018-08-08] MEDS ORDERED: methylPREDNISolone ACET (DEPO) 80 MG/1 ML VIAL IJ ONE (08:12)
--- NOTE | 2018-08-08 08:45 | PN ---
Progress Note (short form) - Note Progress Note: NEUROSURGERY Seen in PACU No H/A AF. VSS More awake VALENTINE's Still some L thigh pain Neurologically stable
--- NOTE | 2018-08-08 08:51 | OP ---
DATE OF OPERATION: 08/07/2018 PREOPERATIVE DIAGNOSES: 1. Left L2-3 foraminal disk herniation with lumbar radiculopathy. 2. History of L3-L5 laminectomy. POSTOPERATIVE DIAGNOSES: 1. Left L2-3 foraminal disk herniation with lumbar radiculopathy. 2. History of L3-L5 laminectomy. ATTENDING SURGEON: Elizabeth Ovalles MD PROCEDURE: 1. Left L1-L2 epidural steroid injection. 2. Intraoperative fluoroscopy. ANESTHESIA: Local with IV sedation. ANESTHESIOLOGIST: Harjinder Wright MD INDICATION: The patient is a 72-year-old male who had previously undergone L2- L5 laminectomy and did extremely well. He developed recurrent left-sided radiculopathy and was found to have L2-L3 foraminal disk herniation. He is now here for the second epidural steroid injection. The risks of the procedure include but are not limited to bleeding, infection, spinal headache, and neurological injury. The patient understands the indications for the procedure, procedure in detail, risks and benefits and alternatives for treatment of his lumbar condition and wishes to proceed. No guarantees were given for a favorable outcome. PROCEDURE IN DETAIL: After the patient was taken to the operating room, he was placed in a prone position with a pillow underneath hips. The lumbar region was cleaned with alcohol and prepped with Betadine. Skin wheal was raised with 5 mL of 1% Xylocaine. A 22-gauge spinal needle was inserted under AP fluoroscopic guidance towards the epidural space. The L2-3 level has a moderate degree of epidural fibrous, and the needle was marched up to the L1-2 interlaminar space near the inferior portion. Loss of resistance technique was utilized, and there was no CSF or blood backflow. The needle bevel was turned toward the left and caudally. Depo- Medrol 80 mg and 1 mL of 0.25% Marcaine were injected. The needle was withdrawn and sterile bandage was applied. The patient tolerated the procedure well and was turned back to the supine position, moving bilateral lower extremities well. He did not complain of headache. ELIZABETH OVALLES M.D. [id number] MTDD
[2018-08-08 10:19] VITALS: PULSE 54
[2018-08-08 10:23] VITALS: BP 113/67; TEMP 98
== END 2018-08-08 09:50 | disposition home or self-care (01) ==
LOC: JASU-SURG 06:21
PROVIDERS: ATTEND Neurological Surgery
PROC: 3E0R33Z Introduction of Anti-inflammatory into Spinal Canal, Percutaneous Approach (ICD-10-PCS; 2018-08-08)
PROC: B01BZZZ Fluoroscopy of Spinal Cord (ICD-10-PCS; 2018-08-08)
PROC: 3E0R3BZ Introduction of Anesthetic Agent into Spinal Canal, Percutaneous Approach (ICD-10-PCS; principal; 2018-08-08 07:30)
DX: M51.16 Intervertebral disc disorders with radiculopathy, lumbar region (principal); M96.1 Postlaminectomy syndrome, not elsewhere classified
CPT/HCPCS: 94760

== ENCOUNTER 2021-05-10 15:13 | Emergency (ER) | payer OTHER, MEDICARE | END 2021-05-10 18:27 | disposition home or self-care (01) | LOC: JVIRT 15:13 | DX: Z11.52 Encounter for screening for COVID-19 (principal) | CPT/HCPCS: Q3014-GT ==

== ENCOUNTER 2022-11-08 11:22 | Emergency (ER) | payer OTHER, MEDICARE ==
[2022-11-08 11:50] VITALS: BP 136/66; PULSE 75; RESP 20; TEMP 98.3; BMI 26.8
[2022-11-08] MEDS ORDERED: DIPHTH,PERTUSS(ACELL),TET 0.5 ML DISP.SYRIN IM ONE (12:53)
== END 2022-11-08 14:07 | disposition home or self-care (01) ==
LOC: FER 11:22
PROC: 0HQ1XZZ Repair Face Skin, External Approach (ICD-10-PCS; principal; 2022-11-08)
DX: S01.81XA Laceration without foreign body of other part of head, initial encounter (principal); W00.9XXA Unspecified fall due to ice and snow, initial encounter
CPT/HCPCS: 12011-25; 70160-TC-FY; 70450-TC; 99284-25

== ENCOUNTER 2022-11-18 09:54 | Emergency (ER) | payer OTHER, MEDICARE ==
[2022-11-18 10:01] VITALS: BP 123/76; PULSE 72; RESP 20; TEMP 98.3; BMI 26.2
== END 2022-11-18 10:27 | disposition home or self-care (01) ==
LOC: FER 09:54
DX: S01.81XA Laceration without foreign body of other part of head, initial encounter (principal); W19.XXXA Unspecified fall, initial encounter; Z48.02 Encounter for removal of sutures
CPT/HCPCS: 99281-25